=== PATIENT | male | born 1975 | race Caucasian/White ===

== ENCOUNTER → 2019-10-20 | Outpatient (CLI) | payer OTHER ==
--- NOTE | 2019-10-20 09:43 | REP ---
RIGHT UPPER QUADRANT ULTRASOUND: Real-time sonographic evaluation of right upper quadrant performed. Gallbladder demonstrates no evidence of intraluminal sludge or calculi, wall thickening, or pericholecystic fluid. There is no intrahepatic or extrahepatic biliary dilatation, common bile duct measuring 4 mm. Liver demonstrates no mass. Pancreas is obscured by overlying bowel gas. Right kidney demonstrates no hydronephrosis with normal size 12.9 cm in length. No ascites is seen. IMPRESSION: Essentially negative right upper quadrant ultrasound. Electronically Signed by Vik Edwards MD 10/20/2019 03:54 P
== END ==
LOC: M RAD 07:45
PROVIDERS: ATTEND Physician Assistant Medical
DX: M54.2 Cervicalgia (principal)

== ENCOUNTER 2020-11-28 07:50 | Inpatient (IN) | payer MEDICARE, OTHER ==
[~2020-11-28] VITALS: Ht 167.6 cm; Wt 117.2 kg
[2020-11-28] VITALS (13 sets, daily range): BP systolic 114–158; BP diastolic 57–93
[2020-11-28] MEDS ORDERED: ISOVUE-370 76% 100ML VIAL As Ordered ONE (07:59)
--- NOTE | 2020-11-28 08:11 | REP ---
INDICATION: weakness right. COMPARISON: None. TECHNIQUE: Axial CT images with multiplanar reformations. FINDINGS: No acute bleed or acute large vessel territorial infarct. Ventricles, cisterns and sulci are within normal limits. No mass effect or midline shift. No abnormal fluid collections. Paranasal sinuses and mastoid air cells are clear. IMPRESSION: No acute findings. <Electronically signed by Nayan Starks > 11/28/20 0807
--- NOTE | 2020-11-28 08:25 | REP ---
INDICATION: CVA. COMPARISON: None. TECHNIQUE: Portable FINDINGS: The technique utilized in obtaining the radiograph has magnified the cardiac silhouette and accentuated the interstitial markings. The superior mediastinal structures are midline. The cardiac silhouette is unremarkable in size, shape, and position. The diaphragmatic surfaces of the lungs are regular, and the costophrenic angles are clear. The pulmonary winn are clear. The imaged osseous structures are intact. IMPRESSION: There is no acute cardiopulmonary disease. <Electronically signed by Jose Valles > 11/28/20 [id number]
[2020-11-28 08:46] LABS: BASO % 0.7 % (0.0-1.0); EOS # 0.3 10^3/uL (0.0-0.5); EOS % 4.5 % (0.0-3.0); HEMATOCRIT 40.2 % (42.0-52.0); HEMOGLOBIN 13.9 g/dl (13.5-17.5); LYMPH # 1.6 10^3/uL (1.5-5.0); LYMPH % 28.4 % (24.0-44.0); MEAN CORPUSCULAR HEMOGLOBIN 29.7 pg (27.0-33.0); MEAN CORPUSCULAR HGB CONC 34.6 g/dl (32.0-36.5); MEAN CORPUSCULAR VOLUME 85.9 fl (80.0-96.0); MONO # 0.5 10^3/uL (0.0-0.8); MONO % 8.3 % (2.0-8.0); NEUTROPHILS # 3.2 10^3/uL (1.5-8.5); NEUTROPHILS % 57.7 % (36.0-66.0); PLATELET COUNT, AUTOMATED 213 10^3/uL (150-450); RED BLOOD COUNT 4.68 10^6/uL (4.30-6.10); WHITE BLOOD COUNT 5.6 10^3/uL (4.0-10.0)
--- NOTE | 2020-11-28 08:46 | REP ---
INDICATION: Right-sided weakness. COMPARISON: No prior similar studies. TECHNIQUE: Axial CT images with multiplanar reformations with contrast. FINDINGS: On the right, common and internal carotid arteries widely patent. Vertebral artery is patent throughout its cervical course. No evidence of significant stenosis or occlusion. On the left, common and internal carotid arteries widely patent. Vertebral artery is patent throughout its cervical course. No evidence of a significant stenosis or occlusion. No significant cervical lymphadenopathy. Early bridging osteophyte formation noted at the C6-7 level posteriorly with at least moderate canal stenosis. The canal narrows to approximately 8 mm at this level. IMPRESSION: 1. No significant vascular disease within the neck. No stenosis or occlusion. No aneurysm identified. 2. Early bridging osteophyte formation noted at the C6-7 level posteriorly with at least moderate canal stenosis. This could be further evaluated with MRI as clinically indicated. <Electronically signed by aNyan Starks > 11/28/20 0842
--- NOTE | 2020-11-28 08:49 | REP ---
INDICATION: weakness right. COMPARISON: None. TECHNIQUE: Axial CT images with multiplanar reformations with contrast. FINDINGS: Vertebral arteries are codominant. Basilar artery and waiter/waitress buffet appear unremarkable. Internal carotid arteries, proximal and distal MCA branches appear normal. A1 segments and EUGENE branches are unremarkable. IMPRESSION: Normal examination. No evidence of the significant stenosis or occlusion. No aneurysm identified. <Electronically signed by Nayan Starks > 11/28/20 0827
[2020-11-28 08:58] LABS: CK-MB VALUE MASS 1.2 NG/ML (<3.6); CPK CREATINE PHOSPHOKINASE 190 U/L (39-308); MB/CK RELATIVE INDEX 0.63 (< OR =4); TROPONIN I < 0.02 NG/ML (< 0.10)
[2020-11-28 08:59] LABS: INR 1.06; PROTHROMBIN TIME 14.1 SECONDS (12.5-14.3)
[2020-11-28 09:00] LABS: PARTIAL THROMBOPLASTIN TIME 27.3 SECONDS (24.2-38.5)
[2020-11-28] MEDS ORDERED: ALTEPLASE 100MG VIAL IV ONE (09:10)
[2020-11-28] MEDS ORDERED: ALTEPLASE RECOMBINANT 81 MG in IV 1 EA IV ONE (09:10)
[2020-11-28] MEDS ORDERED: BUSP10TA PO (09:33)
[2020-11-28] MEDS ORDERED: PROZ40CA PO (09:33)
[2020-11-28] MEDS ORDERED: BUPR150T12 PO (09:33)
[2020-11-28] MEDS ORDERED: STATIN PO (09:33)
[2020-11-28] MEDS ORDERED: FISH1000 PO (09:33)
[2020-11-28] MEDS ORDERED: ASPI-161 PO (09:33)
[2020-11-28] MEDS ORDERED: MED REC COMMENT (09:34)
[2020-11-28] MEDS ORDERED: SODIUM CHLORIDE 0.9% 50 ML IV ONE (10:10)
[2020-11-28] MEDS ORDERED: SODIUM CHLORIDE 0.9% 1000ML IV ONE (10:30)
[2020-11-28] MEDS ORDERED: ROSU5TAB5 PO (10:35)
[2020-11-28] MEDS ORDERED: BUPR15TASR PO (10:35)
[2020-11-28] MEDS ORDERED: FLUO20CA22 PO (10:36)
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
--- NOTE | 2020-11-28 14:16 | REP ---
INDICATION: cva. COMPARISON: None. TECHNIQUE: Axial T1, T2, FLAIR, gradient echo, and diffusion-weighted imaging of the brain obtained. FINDINGS: No evidence of restricted diffusion to suggest acute infarction. No gradient echo susceptibility to suggest hemorrhage. The ventricles and extra-axial CSF spaces are within normal limits for age. No mass effect or midline shift. No abnormal fluid collections. Paranasal sinuses and mastoid air cells are clear. IMPRESSION: No acute findings. <Electronically signed by Nayan Starks > 11/28/20 [id number]
--- NOTE | 2020-11-28 14:19 | REP ---
INDICATION: cva. COMPARISON: None. TECHNIQUE: [id number] MRA of the brain. FINDINGS: The vertebral arteries are co-dominant. Basilar artery and hoop coiling machine operator are unremarkable. Internal carotid arteries, proximal and distal MCA branches are normal. A1 segments and EUGENE branches are unremarkable. When compared to prior study 12/06/2011, no gross changes. IMPRESSION: No evidence of stenosis occlusion or aneurysm. No significant changes from previous. <Electronically signed by Nayan Starks > 11/28/20 [id number]
--- NOTE | 2020-11-28 14:22 | REP ---
INDICATION: cva. COMPARISON: MRA of the carotid arteries, 12/06/2011. TECHNIQUE: [id number] MRA of the neck. FINDINGS: The common and internal carotid arteries widely patent. The vertebral arteries present throughout their cervical course. At the carotid bifurcation, no significant stenosis. IMPRESSION: No significant stenosis or occlusion. No significant changes from a previous. <Electronically signed by Nayan Starks > 11/28/20 [id number]
[2020-11-28] MEDS ORDERED: ACETAMINOPHEN TAB 650MG DOSE (2X325MG) PO PRN (14:40)
[2020-11-28] MEDS: NS 1,000 ML IV SCH (14:47)
[2020-11-28] MEDS ORDERED: ATORVASTATIN 20 MG TAB PO SCH (21:00)
[2020-11-29] VITALS (9 sets, daily range): BP systolic 115–131; BP diastolic 59–76
[2020-11-29] MEDS: NS 1,000 ML IV SCH ×2 (00:50→10:03)
[2020-11-29 06:05] LABS: HEMATOCRIT 42.3 % (42.0-52.0); HEMOGLOBIN 14.1 g/dl (13.5-17.5); MEAN CORPUSCULAR HEMOGLOBIN 29.5 pg (27.0-33.0); MEAN CORPUSCULAR HGB CONC 33.3 g/dl (32.0-36.5); MEAN CORPUSCULAR VOLUME 88.5 fl (80.0-96.0); PLATELET COUNT, AUTOMATED 215 10^3/uL (150-450); RED BLOOD COUNT 4.78 10^6/uL (4.30-6.10); WHITE BLOOD COUNT 6.7 10^3/uL (4.0-10.0)
[2020-11-29 06:32] LABS: ALBUMIN 3.5 GM/DL (3.2-5.2); ALT/SGPT 43 U/L (12-78); BILIRUBIN,DIRECT 0.1 MG/DL (0.0-0.2); BILIRUBIN,TOTAL 0.5 MG/DL (0.2-1.0); BLOOD UREA NITROGEN 14 MG/DL (7-18); CALCIUM LEVEL 8.8 MG/DL (8.5-10.1); CARBON DIOXIDE LEVEL 29 MEQ/L (21-32); CHLORIDE LEVEL 107 MEQ/L (98-107); CHOLESTEROL LEVEL 166 MG/DL (<200); CHOLESTEROL RISK RATIO 3.458 (<5); CREATININE FOR GFR 0.87 MG/DL (0.70-1.30); GLOMERULAR FILTRATION RATE > 60.0 (>60); GLUCOSE, FASTING 114 MG/DL (70-100); HDL CHOLESTEROL 48 MG/DL (>40); LDL CHOLESTEROL 81 MG/DL (<100); NON-HDL-C 118 MG/DL; POTASSIUM SERUM 4.2 MEQ/L (3.5-5.1); RHEUMATOID FACTOR QUANT < 10.0 IU/ML (<15.0); SODIUM LEVEL 141 MEQ/L (136-145); TOTAL PROTEIN 6.3 GM/DL (6.4-8.2); TRIGLYCERIDES LEVEL 184 MG/DL (<150)
[2020-11-29 07:18] LABS: HEMOGLOBIN A1c 5.3 %
[2020-11-29 07:21] LABS: ERYTHROCYTE SEDIMENTATION RATE 6 mm/hr (0-15)
--- NOTE | 2020-11-29 07:52 | ECGEPIP ---
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
[2020-11-29] MEDS ORDERED: ASPIRIN 81 MG CHEW TABLET PO SCH (09:00)
--- NOTE | 2020-11-29 09:29 | ECHO ---
DATE OF PROCEDURE: 11/28/2020 Age: 45 Gender: Male Height: 168 cm Weight: 116 kg REFERRING PHYSICIAN: Dr. Cervantes. INDICATION: Stroke. MEASUREMENTS: IVS 1.4 cm LV 3.8 cm LVPW 1.0 cm LA 3.1 cm Aorta 3.3 cm Mitral E wave velocity 64 A wave 58 E prime septal 9.9 E prime lateral 10.8 FINDINGS: This study is of limited technical quality corresponding to patient's body habitus. Underlying sinus rhythm. Left ventricle is normal size. Mild left ventricle hypertrophy is noted. Overall likely normal LV systolic function by limited views. I certainly cannot rule out subtle wall motion abnormalities. Right ventricle was poorly visualized but grossly appears normal. Both atria appear normal. Aortic, mitral, and tricuspid valve appear grossly normal based on limited views. Pulmonic valve was not well visualized. No pericardial effusion is noted. Inferior vena cava was not seen. Aortic root and aortic arch appear normal. Abdominal aorta was not visualized. Doppler interrogation reveals no aortic stenosis or insufficiency. There is no significant mitral and tricuspid stenosis or insufficiency. Mitral inflow pattern and tissue Doppler imaging of mitral annulus revealed normal diastolic function. CONCLUSIONS: 1. Study is of limited technical quality corresponding to patient's body habitus. Underlying sinus rhythm. 2. Normal LV size with mild LVH and preserved LV systolic and diastolic function. 3. No significant valvular disease. 4. Unable to estimate central venous pressure and pulmonary artery pressure. 5. No obvious abnormality to explain stroke. MTDD
--- NOTE | 2020-11-29 09:40 | DS.PDOC ---
Discharge Summary General Date of Admission Nov 28, 2020 at 09:34 Date of Discharge 11/29/[address] BOX'S DISCHARGE SUMMARY JOB # [id number] Vital Signs/I&Os Vital Signs Date Time Temp Pulse Resp B/P (MAP) Pulse Ox O2 Delivery O2 Flow Rate FiO2 11/29/20 07:43 98.6 72 16 130/76 (94) 97 Room Air I&O- Last 24 Hours up to 6 AM 11/29/20 06:00 Intake Total 3851 ml Output Total 1625 ml Balance 2226 ml Laboratory Data Labs 24H Laboratory Tests 2 11/29/20 05:40: Nucleated Red Blood Cells % (auto) 0.0, Erythrocyte Sedimentation Rate 6, Anion Gap 5L, Glomerular Filtration Rate > 60.0, Estimated Mean Plasma Glucose 105, Hemoglobin A1c 5.3, Calcium Level 8.8, Total Bilirubin 0.5, Direct Bilirubin 0.1, Aspartate Amino Transf (AST/SGOT) 27, Alanine Aminotransferase (ALT/SGPT) 43, Alkaline Phosphatase 38L, Total Protein 6.3L, Albumin 3.5, Albumin/Globulin Ratio 1.3, Triglycerides Level 184H, Total Cholesterol 166, LDL Cholesterol 81, Non-HDL Cholesterol (LDL + VLDL) 118, Total HDL Cholesterol 48, Cholesterol/HDL Ratio 3.458, Rheumatoid Factor < 10.0 CBC/BMP Laboratory Tests 11/29/20 05:40 Microbiology Microbiology 11/28/20 Respiratory Virus Panel (PCR) ([facility]) - Final, Complete Discharge Medications Scheduled Aspirin (Aspirin EC) 81 Mg Tablet.dr, 81 MG PO DAILY, (Reported) Bupropion HCl (Bupropion HCl Sr) 150 Mg Tab.er.12h, 150 MG PO DAILY, (Reported) Buspirone HCl (Buspirone HCl) 10 Mg Tablet, 20 MG PO DAILY, (Reported) Fluoxetine Hcl (Fluoxetine HCl) 20 Mg Capsule, 40 MG PO BID, (Reported) [place]-3 Fatty Acids/Fish Oil (Fish Oil 1,000 mg Capsule) 1 Each Capsule, 1,000 MG PO DAILY, (Reported) Rosuvastatin Calcium (Rosuvastatin Calcium) 5 Mg Tablet, 2.5 MG PO QHS, ( Reported) Allergies Coded Allergies: No Known Allergies (Unverified , 11/28/20) AYLEEN BOX MD Nov 29, 2020 09:40
--- NOTE | 2020-11-29 09:55 | DSES ---
DISCHARGE SUMMARY DATE OF ADMISSION: 11/28/2020 DATE OF DISCHARGE: 11/29/2020 CELL BIOLOGY SCIENTIST: Neurologist, Taisha Kinney MD DISCHARGE DIAGNOSES: 1. Transient ischemic attack with right upper extremity weakness. 2. Hypertensive urgency. 3. Chronic tension headaches, intractable. 4. Obstructive sleep apnea. 5. Anxiety and depression. 6. Left ventricular hypertrophy. DISCHARGE MEDICATIONS: 1. Aspirin 81 mg daily. 2. Rosuvastatin 5 mg, 2.5 mg q. h.s. 3. Fluoxetine 40 mg b.i.d. 4. Fish oil 1 gram daily. 5. Buspirone 20 mg daily. 6. Bupropion 150 mg daily. DISCHARGE INSTRUCTIONS: Follow-up with Dr. Kinney within one week of hospital discharge and primary care physician after five days. HOSPITAL COURSE: This is a 45-year-old male with a history of depression, anxiety, chronic intractable headaches, hypercholesterolemia, obstructive sleep apnea on chronic CPAP who presented to the emergency room with acute onset of right-sided arm weakness and left facial numbness at 7 a.m. with slurred speech according to the . Glucose on admission was 104. CT of the head and CTA of the brain were negative. EKG with sinus rhythm and ventricular rate of 86. Blood pressure was 193/106 with NIH stroke scale of 2 at the time. The patient was given TPA and complained of a mild headache on the right side frontal area afterward. He was admitted to ICU. No medications were given for the high blood pressure. He was given IV fluids due to blood pressure dropping down to 119. He was seen by Dr. Taisha Kinney. MRI and MRA of the brain and carotid MRA were all negative. The patient was kept on aspirin. No new neurological issues occurred and resolution of symptoms occurred within a few hours of admission. DISCHARGE PHYSICAL EXAMINATION: VITAL SIGNS: Temperature 98.6, pulse 72, respiratory rate 16, blood pressure 130/76, 97% on room air. GENERAL: Awake, alert, and oriented x3. No conversational dyspnea. HEENT: Face is symmetric. Tongue is midline. Uvula is midline. LUNGS: Clear to auscultation. No wheezing, rales or rhonchi. HEART: S1, S2. Sinus rhythm. ABDOMEN: Obese, soft, nontender, and nondistended with positive bowel sounds. EXTREMITIES: No cyanosis, clubbing, or pitting edema. NEUROLOGIC: Awake, alert, and oriented x3. Pupils equally round and reactive to light and accommodation. Extraocular muscles are intact. Speech is fluent without any slurring. No expressive or receptive aphasia. No dysmetria on [id number] testing. No pronator drift bilaterally. Motor function is 5/5 x4 extremities with normal gait. DTRs 2+ bilaterally. No sensory issues. LABORATORY DATA: White count 6.7, hemoglobin 14, hematocrit 42, platelet count 215,000. Sodium 141, potassium 4.2, chloride 107, bicarb 27, BUN 14, creatinine 0.87, glucose of 114, A1c of 5.3. Triglycerides 184, total cholesterol 166, LDL of 81. Respiratory panel negative. IMAGING DATA: All negative CT head, CTA neck, CTA of the brain, chest x-ray, MRI of the brain, MRA of the brain, and carotid MRI no acute findings. Time spent on discharge 30 minutes. MTDD
[2020-11-29 11:16] LABS: PTT LUPUS TYPE ANTICOAG SCREEN 1.1 (0-1.2)
--- NOTE | 2020-11-30 10:20 | EEG ---
ELECTROENCEPHALOGRAM DATE: 11/29/2020 DIAGNOSIS: Slurred speech, right arm and left face numbness; rule out seizure. EEG# [id number]. REFERRING PHYSICIAN: Vanessa Cervantes MD HISTORY: Patient is a 45-year-old man with history of anxiety, depression, and headaches who presented to [facility] due to left-sided facial and right arm numbness with slurred speech and his blood pressure was 193/106. This EEG was done to rule out epileptic potential. He is currently taking aspirin, Lipitor, etc. TECHNICAL DESCRIPTION: This digital EEG was recorded by 21-scalp, ear, and two EKG electrodes and was reviewed in bipolar and referential montages following reformatting in 10-20 international electrode placement system. INTERPRETATION: Patient was noted to be in awake and drowsy states during this EEG. Resting and awake background rhythm consisted of well-formed posterior dominant rhythm with anterior-posterior gradient comprising 10 Hz alpha activity measuring 15-40 microvolts in amplitude, which was symmetric and reactive to eye opening. Attenuation of posterior dominant rhythm was seen during transition into drowsiness. No sleep was achieved. Hyperventilation could not be performed. Photic stimulation remained unremarkable. EKG revealed normal sinus rhythm. No focal, lateralizing, or epileptiform abnormalities were seen. No relevant clinical activity was noted. CONCLUSION: This EEG in awake and drowsy states is within normal limits.
== END 2020-11-29 14:30 | disposition home or self-care (01) | DRG 62 ==
LOC: M ED 07:50 → EDBD 07:50 → M ED INP 09:34 → ENRESERV 12:53 → M ICU 14:05 → M MSPAV 11-29 09:55
PROVIDERS: ADMIT General Practice; ATTEND General Practice
DX: G45.9 Transient cerebral ischemic attack, unspecified (principal); Z68.41 Body mass index [BMI] 40.0-44.9, adult; G81.91 Hemiplegia, unspecified affecting right dominant side; E66.9 Obesity, unspecified; G47.33 Obstructive sleep apnea (adult) (pediatric); F32.9 Major depressive disorder, single episode, unspecified; I16.0 Hypertensive urgency; M54.5 Low back pain; F41.9 Anxiety disorder, unspecified; E78.00 Pure hypercholesterolemia, unspecified; G44.229 Chronic tension-type headache, not intractable; R42 Dizziness and giddiness; R20.0 Anesthesia of skin; Z79.82 Long term (current) use of aspirin; Z79.899 Other long term (current) drug therapy

== ENCOUNTER 2021-03-02 15:27 | Emergency (ER) | payer OTHER ==
[~2021-03-02] VITALS: Ht 172.7 cm; Wt 115.9 kg
[~2021-03-02 15:27] MED LIST: ASPI-161 PO; BUPR150T12 PO; BUPR15TASR PO; BUSP10TA PO; FISH1000 PO; FLUO20CA22 PO; MED REC COMMENT; PROZ40CA PO; ROSU5TAB5 PO; STATIN PO
--- NOTE | 2021-03-02 16:45 | REP ---
INDICATION: CHEST PAIN. COMPARISON: Comparison chest x-ray October 28, 2020. TECHNIQUE: Two views.. FINDINGS: The lungs are well inflated and free of infiltrate. The pleural angles are sharp. The heart size is normal. Pulmonary vasculature is not increased. No significant bony abnormality is seen. EKG monitoring electrodes are seen overlying the chest. IMPRESSION: Negative chest x-ray. <Electronically signed by Prasanth Bishop > 03/02/21 [id number]
[2021-03-02 16:46] LABS: BASO # 0.1 10^3/uL (0.0-0.2); BASO % 0.9 % (0.0-1.0); EOS # 0.4 10^3/uL (0.0-0.5); EOS % 5.9 % (0.0-3.0); HEMATOCRIT 45.2 % (42.0-52.0); HEMOGLOBIN 15.9 g/dl (13.5-17.5); LYMPH # 2.3 10^3/uL (1.5-5.0); LYMPH % 34.9 % (24.0-44.0); MEAN CORPUSCULAR HEMOGLOBIN 29.5 pg (27.0-33.0); MEAN CORPUSCULAR HGB CONC 35.2 g/dl (32.0-36.5); MEAN CORPUSCULAR VOLUME 83.9 fl (80.0-96.0); MONO # 0.5 10^3/uL (0.0-0.8); MONO % 7.7 % (2.0-8.0); NEUTROPHILS # 3.3 10^3/uL (1.5-8.5); NEUTROPHILS % 50.1 % (36.0-66.0); PLATELET COUNT, AUTOMATED 248 10^3/uL (150-450); RED BLOOD COUNT 5.39 10^6/uL (4.30-6.10); WHITE BLOOD COUNT 6.6 10^3/uL (4.0-10.0)
[2021-03-02 17:23] LABS: ALBUMIN 4.2 GM/DL (3.2-5.2); ALT/SGPT 71 U/L (12-78); BILIRUBIN,DIRECT 0.1 MG/DL (0.0-0.2); BILIRUBIN,TOTAL 0.5 MG/DL (0.2-1.0); BLOOD UREA NITROGEN 16 MG/DL (7-18); CALCIUM LEVEL 8.6 MG/DL (8.5-10.1); CARBON DIOXIDE LEVEL 25 MEQ/L (21-32); CHLORIDE LEVEL 111 MEQ/L (98-107); CK-MB VALUE MASS 1.4 NG/ML (<3.6); CPK CREATINE PHOSPHOKINASE 349 U/L (39-308); CREATININE FOR GFR 1.11 MG/DL (0.70-1.30); GLOMERULAR FILTRATION RATE > 60.0 (>60); GLUCOSE, FASTING 120 MG/DL (70-100); LIPASE 121 U/L (73-393); POTASSIUM SERUM 3.7 MEQ/L (3.5-5.1); SODIUM LEVEL 140 MEQ/L (136-145); TOTAL PROTEIN 7.4 GM/DL (6.4-8.2); TROPONIN I < 0.02 NG/ML (< 0.10)
--- NOTE | 2021-03-02 18:44 | REPVR ---
PROCEDURE INFORMATION: Exam: CT Head Without Contrast Exam date and time: 03/02/2021 5:56 PM Age: 45 years old Clinical indication: Pain; Headache TECHNIQUE: Imaging protocol: Computed tomography of the head without contrast. Radiation optimization: All CT scans at this facility use at least one of these dose optimization techniques: automated exposure control; mA and/or kV adjustment per patient size (includes targeted exams where dose is matched to clinical indication); or iterative reconstruction. COMPARISON: MRI-Brain without Contrast 11/28/2020 12:53 PM FINDINGS: Brain: No hemorrhage. Unremarkable white matter for the patient's age. No mass effect. No evolving territorial infarct. Cerebral ventricles: The ventricles are stable in size. Size asymmetry of the lateral ventricles is likely physiologic. No ventriculomegaly. Paranasal sinuses: Visualized sinuses are unremarkable. No fluid levels. Mastoid air cells: Visualized mastoid air cells are well aerated. Bones/joints: Unremarkable. No acute fracture. Soft tissues: Unremarkable. IMPRESSION: No acute intracranial abnormality seen. Electronically signed by: Catherine Nails On 03/02/2021 18:43:46 PM
[2021-03-02] MEDS ORDERED: LR 1,000 ML IV ONE (18:45)
[2021-03-02] MEDS ORDERED: POTASSIUM CHLORIDE 10 MEQ SR TABLET PO ONE (18:45)
[2021-03-02 19:04] LABS: MAGNESIUM LEVEL 2.3 MG/DL (1.8-2.4)
[2021-03-02] MEDS ORDERED: ACETAMINOPHEN TAB 650MG DOSE (2X325MG) PO ONE (20:15)
[2021-03-02] MEDS ORDERED: MECLIZINE 25 MG TABLET PO ONE (20:20)
--- NOTE | 2021-03-02 22:20 | REPVR ---
PROCEDURE INFORMATION: Exam: MR Head Without Contrast Exam date and time: 03/02/2021 9:51 PM Age: 45 years old Clinical indication: Other: Pain in the back of head, HX of TIA; Additional info: Ataxia TECHNIQUE: Imaging protocol: MR of the head without contrast. COMPARISON: 1. CT Head without contrast 2021-03-02 17:51 2. MRI-Brain without Contrast 2020-11-28 12:53 FINDINGS: Brain: No brain parenchymal diffusion restriction to suggest acute ischemia or infarction. No midline shift, mass, fluid collection, or evidence of acute hemorrhage. Cerebral ventricles: Normal. No ventriculomegaly. Bones/joints: Unremarkable. Paranasal sinuses: Normal as visualized. No acute sinusitis. Mastoid air cells: Normal as visualized. No mastoid effusion. Orbital cavity: Unremarkable. Soft tissues: Unremarkable. IMPRESSION: No acute intracranial abnormality. Electronically signed by: Remi Gutierrez On 03/02/2021 22:20:26 PM
[2021-03-02] MEDS ORDERED: CETI5SOL3 PO (22:38)
[2021-03-02] MEDS ORDERED: MECL1TAB31 PO (22:38)
[2021-03-02 22:46] VITALS: BP 134/82
--- NOTE | 2021-03-03 10:53 | ECGEPIP ---
[facility] - ED Test Date: 2021-03-02 Pat Name: ANGELA READ Department: Room: - Gender: Male [employer]: LR : 1975 Requested By: ESTUARDO Rodriguez Order Number: [id number] Reading MD: Diane Zavala Measurements Intervals [place] Rate: 79 P: 50 OR: 158 QRS: 53 QRSD: 84 T: 36 QT: 348 QTc: 399 Interpretive Statements Normal sinus rhythm Low voltage QRS NSTTW abnormalities similar 11/28/20 Electronically Signed on 03-03-2021 10:52:36 EDT by Diane Zavala
== END 2021-03-02 22:53 | disposition home or self-care (01) ==
LOC: M ED 15:27
DX: R51.9 Headache, unspecified (principal); R42 Dizziness and giddiness; R07.89 Other chest pain; E78.5 Hyperlipidemia, unspecified; F41.9 Anxiety disorder, unspecified; F32.9 Major depressive disorder, single episode, unspecified; Z86.73 Personal history of transient ischemic attack (TIA), and cerebral infarction without residual deficits; Z79.82 Long term (current) use of aspirin; Z79.899 Other long term (current) drug therapy

== ENCOUNTER → 2022-12-11 | Outpatient (CLI) | payer OTHER ==
[~2022-12-11] MED LIST changes: +CETI5SOL3 PO; +MECL1TAB31 PO
== END ==
LOC: M CARPUL 13:50
PROVIDERS: ATTEND Family Medicine
DX: R06.02 Shortness of breath (principal)

== ENCOUNTER → 2023-06-23 | Outpatient (CLI) | payer OTHER ==
[~2023-06-23] MED LIST changes: +MECL-209 PO; -MECL1TAB31 PO; +METHACHOLINE KIT INH ONE
== END ==
LOC: M CARPUL 09:41
PROVIDERS: ATTEND Family Medicine
DX: J45.909 Unspecified asthma, uncomplicated (principal)